=== PATIENT | male | born 1990 | race Hispanic/Latino ===

== ENCOUNTER 2017-06-07 13:32 | Emergency (ER) | payer BC ==
[2017-06-07 13:50] VITALS: TEMP 98.2
[2017-06-07] MEDS ORDERED: Sodium Chloride 0.9% 500 ML IV ONE (14:09)
[2017-06-07 14:44] LABS: BASO % 0.4 % (0.0-2.0); EOS % 0.2 % (0.0-4.0); HEMATOCRIT 41.3 % (35.0-51.0); LYMPH # 0.7 K/uL (1.0-4.3); MEAN CORPUSCULAR HEMOGLOBIN 29.5 pg (27.0-31.0); MEAN CORPUSCULAR HGB CONC 34.7 g/dL (33.0-37.0); MEAN PLATELET VOLUME 8.4 fl (7.2-11.7); MONO # 0.9 K/uL (0.0-0.8); MONO % 11.6 % (0.0-10.0); NEUT # 6.3 K/uL (1.8-7.0); NEUT % 78.8 % (50.0-75.0); NRBC % 0.1 % (0.0-0.0); PLATELET COUNT 126 K/uL (130-400); RED CELL DISTRIBUTION WIDTH 12.7 % (11.5-14.5)
[2017-06-07 14:57] LABS: ALB/GLOB RATIO 1.5 (1.0-2.1); ALKALINE PHOSPHATASE 43 U/L (38-126); ALT/SGPT 33 U/L (21-72); AST/SGOT 17 U/L (17-59); BILIRUBIN,TOTAL 1.2 mg/dl (0.2-1.3); BLOOD UREA NITROGEN 13 mg/dl (9-20); CALCIUM 8.8 mg/dL (8.4-10.2); CARBON DIOXIDE 29 mmol/L (22-30); CHLORIDE 99 mmol/L (98-107); GFR AFRICAN-AMERICAN > 60; GLUCOSE,RANDOM 98 mg/dL (75-110); POTASSIUM 3.6 MMOL/L (3.6-5.0); SODIUM 137 mmol/l (132-148); TOTAL PROTEIN 7.6 G/DL (6.3-8.2)
[2017-06-07 15:29] LABS: NEUTROPHIL 80 % (42-75); REACTIVE LYMPHOCYTES 1 % (0-0); TOTAL CELLS COUNTED 100
[2017-06-07 15:30] LABS: LARGE PLATELETS PRESENT
--- NOTE | 2017-06-07 15:31 | ED PDOC ---
HPI: Abdomen Time Seen by Provider: 06/07/17 14:02 Chief Complaint (Nursing): Abdominal Pain Chief Complaint (Provider): abd pain History Per: Patient History/Exam Limitations: no limitations Onset/Duration Of Symptoms: Hrs Outside of [place] travel?: No Current Symptoms Are (Timing): Still Present Context: Travel, Food Location Of Pain/Discomfort: Diffuse Quality Of Discomfort: Cramping, "Pain" Associated Symptoms: Nausea, Diarrhea Exacerbating Factors: None Alleviating Factors: None Last Bowel Movement: Today Additional Complaint(s): 26 year old male presents to ED with complaints of nausea and malaise since yesterday. Today he continued to feel the same and developed generalized abdominal pain worse in the epigastric region associated with nausea and non- bloody diarrhea. Patient states he returned yesterday from trip to [place] and there was someone sick on the plane. Past Medical History Reviewed: Historical Data, Nursing Documentation, Vital Signs Vital Signs: Last Vital Signs Temp 98.2 F 06/07/17 13:48 Pulse 91 H 06/07/17 13:48 Resp 18 06/07/17 13:48 BP 152/89 H 06/07/17 13:48 Pulse Ox 99 06/07/17 15:33 - Medical History PMH: No Chronic Diseases - Surgical History Surgical History: No Surg Hx - Family History Family History: States: Unknown Family Hx - Living Arrangements Living Arrangements: With Family - Social History Current smoker - smoking cessation education provided: No Alcohol: None Drugs: Denies - Home Medications Home Medications: Ambulatory Orders Medication Instructions Recorded Saccharomyces Shellydi [Florastor] 1 cap PO BID #14 cap 06/07/17 - Allergies Allergies/Adverse Reactions: Allergies Allergy/AdvReac Type Severity Reaction Status Date / Time No Known Allergies Allergy Verified 06/07/17 13:48 Review of Systems Constitutional: Positive for: Weakness, Malaise. Negative for: Fever Eyes: Negative for: Vision Change ENT: Negative for: Ear Pain, Nose Congestion, Throat Pain Cardiovascular: Negative for: Chest Pain, Palpitations Respiratory: Negative for: Cough, Shortness of Breath Gastrointestinal: Positive for: Nausea, Abdominal Pain, Diarrhea Genitourinary Male: Negative for: Dysuria, Frequency, Scrotal Pain Musculoskeletal: Negative for: Neck Pain, Back Pain Skin: Negative for: Rash Neurological: Negative for: Numbness, Headache, Dizziness Physical Exam - Reviewed Nursing Documentation Reviewed: Yes Vital Signs Reviewed: Yes - Physical Exam Appears: Positive for: Non-toxic, No Acute Distress Head Exam: Positive for: ATRAUMATIC, NORMAL INSPECTION, NORMOCEPHALIC Skin: Positive for: Warm, Dry Eye Exam: Positive for: Normal appearance, EOMI ENT: Positive for: Normal ENT Inspection Neck: Positive for: Normal, Painless ROM Cardiovascular/Chest: Positive for: Regular Rate, Rhythm, Chest Non Tender. Negative for: Murmur Respiratory: Positive for: Normal Breath Sounds. Negative for: Rales, Rhonchi, Wheezing Gastrointestinal/Abdominal: Positive for: Bowel Sounds (active), Soft, Tenderness (generalized tenderness, non-focal). Negative for: Distended, Guarding Back: Positive for: Normal Inspection. Negative for: L CVA Tenderness, R CVA Tenderness Neurologic/Psych: Positive for: Alert, Oriented - Laboratory Results Result Diagrams: 06/07/17 14:35 06/07/17 14:35 - ECG O2 Sat by Pulse Oximetry: 99 Medical Decision Making Medical Decision Making: Impression: flu like sx Plan: * Labs * fluids * pepcid * zofran * toradol Progress: all labs reviewed, no leukocytosis or electrolyte abnormality. Flu was negative Re-Eval: Patient has no fever and in no distress. Abdomen is soft without guarding or rebound. Discussed results with patient, and copy of lab report was provided. Patient reports improvement of symptoms. Patient feels comfortable going home and will be discharged. Patient given follow up instructions. Instructed to return to ER if symptoms worsen or new symptoms arise. Disposition - Clinical Impression Clinical Impression: Viral syndrome - Patient ED Disposition Is Patient to be Admitted: No Counseled Patient/Family Regarding: Diagnosis, Need For Followup, Rx Given - Disposition Referrals: [facility] [Outside] [facility] [Outside] Disposition: Routine/Home Disposition Time: 15:30 Condition: IMPROVED Additional Instructions: Your labs were normal. Drink fluids to prevent dehydration. Take Florastor to help with diarrhea. Try low-fat diet with increase in fluids such as sport drink , gelatin. Try soup, rice, bread, crackers, cereal, bananas to help with diarrhea. Follow up with your primary medical doctor or clinic in 2-5 days for further evaluation. Return to the emergency department at any time if symptoms persist or worsen. Prescriptions: Saccharomyces Boulardi [Florastor] 1 cap PO BID #14 cap Instructions: Viral Syndrome (ED) Forms: [facility] (I[place]ic) - POA Present On Arrival: None
[2017-06-07 16:10] VITALS: BP 134/76; PULSE 88; RESP 16; O2SAT 100
== END 2017-06-07 16:08 | disposition home or self-care (01) ==
LOC: H.ER 13:32
DX: B34.9 Viral infection, unspecified (principal)
CPT/HCPCS: 80053; 85025; 87804; 96361; 96374; 96375; 99283; J1885; J2405; J7040